=== PATIENT | male | born 1960 | race Caucasian/White ===

== ENCOUNTER 2025-02-28 09:27 | Emergency (ER) | payer BC, SELFPAY ==
[2025-02-28 09:28] VITALS: BP 132/87; PULSE 58; RESP 16; TEMP 36.7; O2SAT 99; BMI 20.9
--- NOTE | 2025-02-28 09:48 | EX.ED.UPPERE ---
HPI History of Present Illness Chief Complaint: Upper Extremity Injury Narrative Narrative: Patient is a 64-year-old male presenting to the emergency department for right shoulder pain. Patient states that he was trying to get out of bed and his dog was in the way causing him to fall out of bed on his right shoulder. He denies any other injuries. He is unsure if he hit his head but had no loss of consciousness and is not on any blood thinners. Denies any headache. Denies any neck or back pain. Denies any other injuries. States it feels like his issues with his rotator cuff in the past. [facility] Medical History (Updated 02/28/25 @ 10:[address] Afshan Sanchez MD) Shoulder injury Allergy/AdvReac Type Severity Reaction Status Date / Time No Known Allergies Allergy Verified 02/28/25 09:28 Social History Smoking Status: Current every day smoker tobacco type: cigarettes ROS ROS ED ROS Narrative See HPI EXAM Physical Exam Narrative Exam Narrative: Vital signs: Reviewed General: Alert and oriented x 3. No acute distress HEENT: Head is normocephalic and atraumatic. No signs of trauma including no cephalhematoma, lacerations or abrasions to the head or face. Midface is stable and nontender to palpation. Pupils 2 mm equal round and reactive. Nares are patent. No septal hematoma. Oropharynx and throat exams normal. No oropharyngeal trauma. Neck: Supple without lymphadenopathy nontender. No midline cervical spinal tenderness to palpation. No step-offs or deformities. Cardiovascular: Regular rate and rhythm, no murmurs. No rubs or gallops. Normal S1 and S2 Respiratory: Clear to auscultation bilaterally. No wheezes, rales, rhonchi Chest: Chest wall is atraumatic and nontender to palpation. No crepitus, erythema or ecchymosis. Abdominal: Soft and nontender. Normal bowel sounds. No guarding or rebound. Nonsurgical abdomen Extremities: Hips are stable and nontender to palpation. Clavicles are nontender to palpation with no obvious deformities felt or seen. The right shoulder has no obvious deformities. There is no defect felt in shoulder exam. No tenderness to palpation of the proximal, midshaft or distal humerus. No tenderness to palpation of the elbow, forearm, wrist or hand. Radial pulse intact bilaterally. Patient able to range at angers, wrist, elbow. Able to abduct to about 30 degrees without pain. Sensation is intact specifically over the axillary nerve. Extremities are otherwise atraumatic and nontender to palpation with normal active range of motion. Skin: No rash or redness. Neurological: Cranial nerves II through XII are grossly intact. Normal strength and sensation. Normal cerebellar function The rest of the physical exam is unremarkable Const Vital Signs: 02/28/25 09:28 Temperature 98.0 F Temperature Source Oral Pulse Rate 58 L Respiratory Rate 16 Blood Pressure 132/87 H Blood Pressure Mean 102 Pulse Ox 99 Oxygen Delivery Method Room Air MDM MDM MDM Narrative Medical decision making narrative: Patient is a 64-year-old male presenting to the emergency department for right shoulder pain after a fall. Patient was seen and examined. Vitals are stable. Patient resting in bed comfortably no acute distress. Differential includes but is not limited to: Rotator cuff tear, fracture, dislocation Patient given Toradol for pain control. Patient refused Toradol, Tylenol given instead. X-ray imaging of the shoulder was obtained. X-ray reviewed by myself, no fracture or dislocation noted. Radiology read with findings suggestive of rotator cuff disease with decreased this is between the acromion in the humeral head. Patient and at bedside were updated on the findings. I did provide rotator cuff stretches and exercises and instructed to take NSAIDs at home along with icing for pain and inflammation control. Encouraged follow-up with PCP as soon as possible and gave orthopedic follow-up if he continues to have pain in his shoulder for possible MRI and further management. Patient stated that he is unsure if he hit his head but he had no loss consciousness and is not on any blood thinners and had no signs of trauma to the head. He is neurologically intact, I do not think it is necessary to obtain CT brain imaging at this time. Patient discharged from the Emergency Department. I do not feel that the patient's evaluation reveals any acute reason for admission at this time. I instructed them to either follow-up with their primary care physician or promptly return to the Emergency Department for reevaluation should symptoms worsen or new symptoms develop. I explained what symptoms would indicate the need to return to the emergency department. Shared decision making was used. The patient voiced understanding of the treatment plan and is agreeable with it. Clinical impression Rotator cuff sprain History & Record Review Discussion w/independent historian: Patient and Significant other Radiography X-Ray: Read by ED Physician, Normal and No Fracture Discharge Plan Triage Chief Complaint: Upper Extremity Injury ED Provider: Afshan Sanchez Dx/Rx/DC Orders Clinical Impression: Rotator cuff (capsule) sprain Instructions: Exercises, Rotator Cuff Injury, ED Rotator Cuff Tear, ED Shoulder Sprain Primary Care Provider: Care Physician,No Primary Referrals: Lucille De Guzman MD [Med Staff - Manager Analysis, Internal Medicine] - As soon as possible Carson Moraes MD [Med Staff - Active Staff, Orthopedics] - As Needed Care Physician,No Primary [Primary Care Provider, Medical] Activity Restrictions/Additional Instructions: You can take NSAIDs at home which include Advil, Aleve, Motrin or ibuprofen for pain control. You can ice your shoulder for inflammation and pain control. Try to have early mobility of your shoulder. If you continue to have pain in your shoulder you can follow-up with the orthopedic doctor below if needed. Follow-up with your primary care doctor soon as possible. Print Language: Azeri Disposition Disposition: Home, Self Care
--- NOTE | 2025-02-28 10:00 | RAD_ITS ---
PROCEDURE: RAD/Shoulder min 2 Views
== END 2025-02-28 10:35 | disposition home or self-care (01) ==
PROVIDERS: Emergency Provider Student in an Organized Health Care Education/Training Program; Visit Provider Student in an Organized Health Care Education/Training Program
DX: S43.421A Sprain of right rotator cuff capsule, initial encounter (principal); W06.XXXA Fall from bed, initial encounter; F17.210 Nicotine dependence, cigarettes, uncomplicated
CPT/HCPCS: 73030; 99282